=== PATIENT | female | born 1955 | race Asian ===

== ENCOUNTER 2023-09-24 16:54 | Emergency (ER) | payer OTHER ==
[~2023-09-24] VITALS: Ht 147.3 cm; Wt 68.2 kg
[~2023-09-24 16:54] MED LIST: ASPI-556 PO; HYDR-4173 PO; PROP50TA3 PO; SIMV-43 PO
[2023-09-24 18:08] VITALS: BP 127/69; PULSE 68; RESP 18; TEMP 97.5
[2023-09-24 20:17] LABS: BASOPHILS % (AUTO) 0.5 % (0.0-2.0); HEMATOCRIT 43.1 % (36-46); HEMOGLOBIN 14.5 g/dL (12.0-16.0); LYMPHOCYTES # (AUTO) 2.8 K/uL (1.0-4.8); LYMPHOCYTES % (AUTO) 23.6 % (22.0-44.0); MEAN CORPUSCULAR HEMOGLOBIN 29.3 pg (26.0-34.0); MEAN CORPUSCULAR HGB CONC 33.8 G/dL (31.0-37.0); MEAN CORPUSCULAR VOLUME 87 fL (80-100); MONOCYTES # (AUTO) 0.8 K/uL (0.1-1.0); MONOCYTES % (AUTO) 6.7 % (2.0-9.0); NEUTROPHILS # (AUTO) 7.8 K/uL (1.8-7.7); NEUTROPHILS % (AUTO) 67.2 % (40.0-70.0); PLATELET COUNT (AUTO) 276 K/uL (150-450); RED BLOOD CELL COUNT(AUTO) 4.96 MIL/uL (4.00-5.20); RED CELL DISTRIBUTION WIDTH 14.1 % (11.5-14.5); WHITE BLOOD COUNT (AUTO) 11.7 K/uL (4.5-11.0)
[2023-09-24 20:28] LABS: CALCIUM, TOTAL 9.6 mg/dL (8.8-10.5); CREATININE 1.13 mg/dL (0.60-1.30); POTASSIUM 3.5 mmol/L (3.5-5.1)
[2023-09-24 20:33] LABS: TROPONIN I-HIGH SENSITIVITY 32 ng/L (<51)
[2023-09-24 20:36] LABS: ALBUMIN 3.9 g/dL (3.4-5.0); BILIRUBIN,TOTAL 0.7 mg/dL (0.1-1.0); TOTAL PROTEIN, SERUM 8.3 g/dL (6.4-8.2)
[2023-09-25] MEDS ORDERED: SODIUM CHLORIDE 0.9% 1,000 ML IV ONE (00:30)
[2023-09-25] MEDS ORDERED: METOCLOPRAMIDE HCL 5 MG/ML 2 ML VIAL IVP ONE (00:30)
== END 2023-09-25 05:42 | disposition left against medical advice (07) ==
LOC: EMS 17:00
DX: R19.7 Diarrhea, unspecified (principal); R11.2 Nausea with vomiting, unspecified; I10 Essential (primary) hypertension; E05.90 Thyrotoxicosis, unspecified without thyrotoxic crisis or storm; F17.210 Nicotine dependence, cigarettes, uncomplicated; Z90.49 Acquired absence of other specified parts of digestive tract; Z98.890 Other specified postprocedural states; Z98.62 Peripheral vascular angioplasty status; Z88.8 Allergy status to other drugs, medicaments and biological substances
CPT/HCPCS: 71045; 80053; 82550; 83690; 83880; 84484; 85025; 93005; 99284; 99285; 36415-L1; 36415-TC

== ENCOUNTER 2025-06-16 13:04 | Emergency (ER) | payer MEDICARE, OTHER ==
[~2025-06-16] VITALS: Ht 147.3 cm; Wt 43.2 kg
[~2025-06-16 13:04] MED LIST changes: +CIPR250T6 PO; -HYDR-4173 PO; +HYDR25TA68 PO; +PANT-31 PO
[2025-06-16 15:16] LABS: PLATELET COUNT (AUTO) 168 K/uL (150-450); RED BLOOD CELL COUNT(AUTO) 4.75 MIL/uL (4.00-5.20); RED CELL DISTRIBUTION WIDTH 14.2 % (11.5-14.5); WHITE BLOOD COUNT (AUTO) 10.0 K/uL (4.5-11.0)
[2025-06-16 15:23] LABS: CALCIUM, TOTAL 8.0 mg/dL (8.8-10.5); CREATININE 1.40 mg/dL (0.60-1.30); GLOMERULAR FILTR. RATE CALC 37 mL/min (>60); GLUCOSE,RANDOM 51 mg/dL (70-110); SODIUM SERUM 141 mmol/L (136-145); UREA NITROGEN, BLOOD 16 mg/dL (7-18)
[2025-06-16 15:28] LABS: PH,URINE DRUG SCREEN 6.0 (5.0-8.0)
[2025-06-16 15:32] LABS: TROPONIN I-HIGH SENSITIVITY 48 ng/L (<51)
[2025-06-16 15:35] LABS: ALCOHOL, URINE DRUG SCREEN NEGATIVE (NEGATIVE); AMPHET/METH SCREEN,URINE POSITIVE (NEGATIVE); BARBITURATE SCREEN, URINE NEGATIVE (NEGATIVE); CANNABINOID SCREEN,URINE NEGATIVE (NEGATIVE); COCAINE SCREEN,URINE NEGATIVE (NEGATIVE); METHADONE SCREEN, URINE NEGATIVE (NEGATIVE)
[2025-06-16] MEDS: ACETAMINOPHEN 325 MG TABLET PO ONE (15:37)
[2025-06-16 15:57] VITALS: BP 143/81; PULSE 63; RESP 15; O2SAT 99
== END 2025-06-16 16:09 | disposition home or self-care (01) ==
LOC: EMS 13:09
DX: I10 Essential (primary) hypertension (principal); F15.90 Other stimulant use, unspecified, uncomplicated; R51.9 Headache, unspecified; E05.90 Thyrotoxicosis, unspecified without thyrotoxic crisis or storm; I25.2 Old myocardial infarction; Z79.82 Long term (current) use of aspirin; Z79.899 Other long term (current) drug therapy; Z86.73 Personal history of transient ischemic attack (TIA), and cerebral infarction without residual deficits; Z90.49 Acquired absence of other specified parts of digestive tract; Z95.0 Presence of cardiac pacemaker; Z95.1 Presence of aortocoronary bypass graft
CPT/HCPCS: 70450; 71045; 80048; 80307; 83880; 84484; 85025; 93005; 99285; 36415-L1; 36415-TC

== ENCOUNTER 2025-07-04 03:00 | Inpatient (IN) | payer MEDICARE, OTHER ==
[~2025-07-04] VITALS: Ht 149.9 cm; Wt 56.8 kg
[2025-07-04 03:40] LABS: PLATELET COUNT (AUTO) 177 K/uL (150-450); RED BLOOD CELL COUNT(AUTO) 5.29 MIL/uL (4.00-5.20); RED CELL DISTRIBUTION WIDTH 14.6 % (11.5-14.5); WHITE BLOOD COUNT (AUTO) 11.1 K/uL (4.5-11.0)
[2025-07-04 03:43] LABS: CALCIUM, TOTAL 8.4 mg/dL (8.8-10.5); CREATININE 1.44 mg/dL (0.60-1.30); GLOMERULAR FILTR. RATE CALC 36.0 mL/min (>60); GLUCOSE,RANDOM 105.0 mg/dL (70-110); SODIUM SERUM 139.0 mmol/L (136-145); UREA NITROGEN, BLOOD 22.0 mg/dL (7-18)
[2025-07-04] MEDS: ONDANSETRON HCL 4 MG/2 ML VIAL IVP ONE (04:07)
[2025-07-04] MEDS ORDERED: DEXTROSE 50%-WATER 25 GM/50 ML SYRINGE IVP ONE (04:15)
[2025-07-04] MEDS: DEXTROSE 50%-WATER 25 GM/50 ML SYRINGE IVP ONE (04:27)
[2025-07-04 04:31] LABS: GLUCOMETER DEV NAME(LOC) ERT.7; GLUCOSE,POINT OF CARE 58 MG/DL (70-110)
[2025-07-04] MEDS: DEXTROSE 5%-0.9% SODIUM CHL 1,000 ML IV ONE (04:33)
[2025-07-04 07:00] LABS: APPEARANCE,URINE CLEAR (CLEAR); GLUCOSE, URINE (UA) 300-500 mg/dL (NEGATIVE); LEUKOCYTE ESTERASE ,URINE NEGATIVE (NEGATIVE); NITRATE,URINE NEGATIVE (NEGATIVE); OCCULT BLOOD,URINE NEGATIVE (NEGATIVE); SPECIFIC GRAVITIY, URINE 1.008 (1.003-1.030)
[2025-07-04 07:10] LABS: SQUAMOUS EPITHELIAL CELL,UR Few /LPF (None Seen)
[2025-07-04] MEDS: FAMOTIDINE 20 MG TABLET PO SCH (07:45)
[2025-07-04] MEDS: DOCUSATE SODIUM 100 MG CAPSULE PO SCH (07:45)
[2025-07-04] MEDS ORDERED: DEXTROSE 50%-WATER 25 GM/50 ML SYRINGE IVP PRN (07:45)
[2025-07-04] MEDS: HEPARIN SODIUM,PORCINE 5,000 UNITS/ML VIAL SQ SCH (07:45)
[2025-07-04 08:21] LABS: GLUCOMETER DEV NAME(LOC) ERT.7; GLUCOSE,POINT OF CARE 73 MG/DL (70-110)
[2025-07-04] MEDS: ASPIRIN 81 MG CHEWABLE TABLET PO SCH (08:27)
[2025-07-04] MEDS: ATORVASTATIN CALCIUM 20 MG TABLET PO SCH (08:27)
[2025-07-04 09:30] VITALS: BP 163/68; PULSE 60; RESP 18; TEMP 98.4; O2SAT 97
[2025-07-04 15:45] VITALS: BP 167/71; PULSE 63; RESP 17; TEMP 98.4; O2SAT 98
[2025-07-04 17:25] LABS: GLUCOMETER DEV NAME(LOC) 4E.2; GLUCOSE,POINT OF CARE 78 MG/DL (70-110)
[2025-07-04 17:26] LABS: GLUCOMETER DEV NAME(LOC) 4E.2; GLUCOSE,POINT OF CARE 115 MG/DL (70-110)
[2025-07-04 20:05] VITALS: BP 152/75; PULSE 67; RESP 20; TEMP 97.7; O2SAT 96
[2025-07-04 20:35] LABS: GLUCOMETER DEV NAME(LOC) 4E.2; GLUCOSE,POINT OF CARE 160 MG/DL (70-110)
[2025-07-05 04:48] VITALS: BP 137/69; PULSE 65; RESP 18; TEMP 98.1; O2SAT 98
[2025-07-05] MEDS: ONDANSETRON HCL 4 MG/2 ML VIAL IVP PRN (05:17)
[2025-07-05 05:46] LABS: GLUCOMETER DEV NAME(LOC) 4E.2; GLUCOSE,POINT OF CARE 125 MG/DL (70-110)
[2025-07-05 07:50] VITALS: BP 124/70; PULSE 79; RESP 18; TEMP 97.5; O2SAT 97
[2025-07-05 09:16] LABS: GLUCOMETER DEV NAME(LOC) 4E.2; GLUCOSE,POINT OF CARE 196 MG/DL (70-110)
[2025-07-05] MEDS: INSULIN LISPRO 100 UNITS/ML SQ PRN (11:34)
[2025-07-05 11:41] LABS: GLUCOMETER DEV NAME(LOC) 4E.2; GLUCOSE,POINT OF CARE 177 MG/DL (70-110)
[2025-07-05 15:30] VITALS: BP 160/79; PULSE 69; RESP 18; TEMP 98.2; O2SAT 100
[2025-07-05] MEDS ORDERED: GLIP2.5T28 PO (16:24)
[2025-07-05] MEDS ORDERED: METO50 PO (16:24)
[2025-07-05 17:30] LABS: GLUCOMETER DEV NAME(LOC) 4E.2; GLUCOSE,POINT OF CARE 118 MG/DL (70-110)
[2025-07-05 17:30] LABS: GLUCOMETER DEV NAME(LOC) 4E.2; GLUCOSE,POINT OF CARE 140 MG/DL (70-110)
[2025-07-05 19:06] LABS: PLATELET COUNT (AUTO) 190 K/uL (150-450); RED BLOOD CELL COUNT(AUTO) 5.23 MIL/uL (4.00-5.20); RED CELL DISTRIBUTION WIDTH 14.3 % (11.5-14.5); WHITE BLOOD COUNT (AUTO) 12.8 K/uL (4.5-11.0)
[2025-07-05 19:14] LABS: CALCIUM, TOTAL 8.3 mg/dL (8.8-10.5); CREATININE 1.28 mg/dL (0.60-1.30); GLOMERULAR FILTR. RATE CALC 41.0 mL/min (>60); GLUCOSE,RANDOM 119.0 mg/dL (70-110); SODIUM SERUM 137.0 mmol/L (136-145); UREA NITROGEN, BLOOD 25.0 mg/dL (7-18)
[2025-07-05 19:25] LABS: ASPARTATE AMINOTRANSFERASE 43.0 U/L (15-37); TOTAL PROTEIN, SERUM 6.8 g/dL (6.4-8.2)
[2025-07-05 19:46] VITALS: BP 165/66; PULSE 82; RESP 20; TEMP 99; O2SAT 97
[2025-07-05] MEDS: ACETAMINOPHEN 325 MG TABLET PO PRN (20:07)
[2025-07-05] MEDS: METOPROLOL TARTRATE 50 MG TABLET PO SCH (20:07)
[2025-07-05 21:10] LABS: GLUCOMETER DEV NAME(LOC) 4E.2; GLUCOSE,POINT OF CARE 113 MG/DL (70-110)
[2025-07-06 05:36] VITALS: BP 142/67; PULSE 67; RESP 18; TEMP 98.4; O2SAT 99
[2025-07-06 06:15] LABS: GLUCOMETER DEV NAME(LOC) 4E.2; GLUCOSE,POINT OF CARE 110 MG/DL (70-110)
[2025-07-06] MEDS: PANTOPRAZOLE SODIUM 40 MG DR TABLET PO SCH (08:02)
[2025-07-06] MEDS: SIMVASTATIN 20 MG TABLET PO SCH (08:02)
[2025-07-06] MEDS: ASPIRIN 81 MG DR TABLET PO SCH (08:02)
[2025-07-06 08:21] VITALS: BP_SYST 143; BP_SYST 175; BP_DIAS 57; BP_DIAS 72; PULSE 64; PULSE 80; RESP 15; RESP 18; TEMP 97.6; TEMP 98.1; O2SAT 97
[2025-07-06 10:21] VITALS: BP 137/55; PULSE 60; RESP 17
[2025-07-06 11:20] LABS: GLUCOMETER DEV NAME(LOC) 4E.2; GLUCOSE,POINT OF CARE 128 MG/DL (70-110)
[2025-07-06 16:33] VITALS: BP 151/68; PULSE 60; RESP 18; TEMP 98.1; O2SAT 97
[2025-07-06 17:51] LABS: GLUCOMETER DEV NAME(LOC) 4E.2; GLUCOSE,POINT OF CARE 125 MG/DL (70-110)
[2025-07-06 19:09] VITALS: BP 159/71; PULSE 65; RESP 18; TEMP 98.8; O2SAT 98
[2025-07-06 19:53] LABS: PLATELET COUNT (AUTO) 201 K/uL (150-450); RED BLOOD CELL COUNT(AUTO) 5.26 MIL/uL (4.00-5.20); RED CELL DISTRIBUTION WIDTH 13.7 % (11.5-14.5); WHITE BLOOD COUNT (AUTO) 8.6 K/uL (4.5-11.0)
[2025-07-06 20:09] LABS: ASPARTATE AMINOTRANSFERASE 31.0 U/L (15-37); CALCIUM, TOTAL 8.7 mg/dL (8.8-10.5); CREATININE 1.24 mg/dL (0.60-1.30); GLOMERULAR FILTR. RATE CALC 43.0 mL/min (>60); GLUCOSE,RANDOM 138.0 mg/dL (70-110); TOTAL PROTEIN, SERUM 7.1 g/dL (6.4-8.2); UREA NITROGEN, BLOOD 22.0 mg/dL (7-18)
[2025-07-06 20:14] LABS: SODIUM SERUM 136.0 mmol/L (136-145)
[2025-07-06] MEDS ORDERED: SODIUM CHLORIDE 0.9% 500 ML IV ONE (20:38)
[2025-07-06] MEDS: CefTRIAXone 1 GM/DEXTROSE 50 ML IV SCH (20:42)
[2025-07-06 23:58] VITALS: BP 151/68; RESP 16
[2025-07-07 01:41] LABS: GLUCOMETER DEV NAME(LOC) 4E.2; GLUCOSE,POINT OF CARE 157 MG/DL (70-110)
[2025-07-07 05:16] VITALS: BP 138/80; PULSE 67; RESP 18; TEMP 98.6; O2SAT 97
[2025-07-07 06:16] LABS: GLUCOMETER DEV NAME(LOC) 4E.2; GLUCOSE,POINT OF CARE 143 MG/DL (70-110)
[2025-07-07 08:11] VITALS: BP 151/55; PULSE 70; RESP 20; TEMP 98.6; O2SAT 96
[2025-07-07 11:36] LABS: GLUCOMETER DEV NAME(LOC) 4E.2; GLUCOSE,POINT OF CARE 102 MG/DL (70-110)
== END 2025-07-07 14:20 | disposition home or self-care (01) | DRG 638 ==
LOC: EMS 03:54 → CANBEDREQ 05:48 → EDH 05:51 → 4E 09:15
PROVIDERS: ADMIT Internal Medicine; ATTEND Internal Medicine
DX: E11.649 Type 2 diabetes mellitus with hypoglycemia without coma (principal); E44.0 Moderate protein-calorie malnutrition; N17.9 Acute kidney failure, unspecified; I10 Essential (primary) hypertension; Z95.2 Presence of prosthetic heart valve; I49.5 Sick sinus syndrome; K57.30 Diverticulosis of large intestine without perforation or abscess without bleeding; D72.829 Elevated white blood cell count, unspecified; I25.10 Atherosclerotic heart disease of native coronary artery without angina pectoris; Z82.49 Family history of ischemic heart disease and other diseases of the circulatory system; Z83.3 Family history of diabetes mellitus; Z86.73 Personal history of transient ischemic attack (TIA), and cerebral infarction without residual deficits; Z87.891 Personal history of nicotine dependence; Z95.0 Presence of cardiac pacemaker; Z95.1 Presence of aortocoronary bypass graft; Z88.8 Allergy status to other drugs, medicaments and biological substances; Z79.899 Other long term (current) drug therapy; Z79.82 Long term (current) use of aspirin; Z68.25 Body mass index [BMI] 25.0-25.9, adult
CPT/HCPCS: 71045; 80048; 80053; 81001; 82962; 84439; 84443; 85025; 87086; 96361; 96374; 96375; 99285; G0378; J0696; J1644; J2405; J7040; J7042; 36415-L1; 36415-TC